=== PATIENT | female | born 1975 | race Asian ===

== ENCOUNTER → 2016-10-28 | Outpatient (CLI) | payer OTHER ==
[2016-10-28 13:56] LABS: MEAN CORPUSCULAR HEMOGLOBIN 28.8 pg (27.0-33.0); MEAN CORPUSCULAR HGB CONC 32.3 g/dl (32.0-36.5); MEAN CORPUSCULAR VOLUME 89.2 fl (80.0-96.0); RED CELL DISTRIBUTION WIDTH 14.6 % (11.5-14.5); WHITE BLOOD COUNT 8.7 K/mm3 (4.0-10.0)
== END ==
LOC: M LAB 11:58
PROVIDERS: ATTEND Advanced Practice Midwife
DX: O09.522 Supervision of elderly multigravida, second trimester (principal)

== ENCOUNTER → 2016-12-11 | Outpatient (REF) | payer OTHER ==
[2016-12-11 13:02] LABS: BASO % 0.5 % (0.0-1.0); EOS # 0.4 K/mm3 (0.0-0.50); EOS % 4.1 % (0.0-3.0); LARGE UNSTAINED CELL # 0.2 K/mm3 (0.0-0.4); LARGE UNSTAINED CELL % 1.9 % (0.0-4.0); LYMPH # 1.5 K/mm3 (1.5-4.5); LYMPH % 17.1 % (24.0-44.0); MEAN CORPUSCULAR HGB CONC 32.4 g/dl (32.0-36.5); MEAN CORPUSCULAR VOLUME 89.5 fl (80.0-96.0); MONO # 0.4 K/mm3 (0.0-0.8); MONO % 4.1 % (0.0-5.0); NEUTROPHILS # 6.2 K/mm3 (1.8-7.7); NEUTROPHILS % 72.3 % (36.0-66.0); PLATELET COUNT, AUTOMATED 236 k/mm3 (150-450); RED CELL DISTRIBUTION WIDTH 13.8 % (11.5-14.5); WHITE BLOOD COUNT 8.6 K/mm3 (4.0-10.0)
== END ==
LOC: M SFHCADAM 11:20
PROVIDERS: ATTEND Family Medicine
DX: D50.9 Iron deficiency anemia, unspecified (principal)

== ENCOUNTER 2016-12-13 15:14 | Emergency (ER) | payer OTHER ==
[2016-12-13] MEDS ORDERED: ALBUTEROL SULFATE 2.5 MG/0.5 ML INH NEB SOLN As Ordered ONE (16:29)
[2016-12-13] MEDS ORDERED: AMOXICILLIN 500 MG CAP As Ordered ONE (16:35)
--- NOTE | 2016-12-13 18:16 | EDDOCDS ---
Physician Documentation [facility] Name: Jeni Bell Age: 41 yrs Sex: Female : 1975 Arrival Date: 12/13/2016 Time: 15:14 Bed PD Private MD: NO PRIMARY PHYSICIAN, . Disposition: 12/13/16 17:35 Discharged to Home/Self Care. Impression: Cough variant asthma, Acute sinusitis. - Condition is Stable. - Discharge Instructions: Asthma, Adult, Medicines During , Sinusitis, [id number]. - Prescriptions for Amoxicillin 875 mg Oral Tablet - take 1 tablet by ORAL route every 12 hours for 10 days; 20 tablet. Albuterol Sulfate 90 mcg/actuation Inhalation HFA Aerosol Inhaler - inhale 2 puff by INHALATION route every 4 hours As needed; 1 Inhaler. - Medication Reconciliation, Local Pharmacy Hours, Referral List Call for Appointment form. - [facility]; When: 1 - 2 days; Reason: Further diagnostic work-up, Recheck today's complaints, Continuance of care. Follow up: Emergency Department; Reason: Worsening of conditions. - Problem is new. - Symptoms have improved. Historical: - Allergies: no known allergies; - Home Meds: 1. ventolin inhaler as needed 2. Plaquenil Unknown Oral once daily 3. montelukast 10 mg oral tab 1 tab once daily - PMHx: Asthma; Arthritis; Seasonal Allergies; - PSHx: none; - Social history: Smoking status: Patient states was never smoker of tobacco. Preferred Language: Sao Tomean. - Family history: Not pertinent. - : The pt / caregiver states he / she is not on anticoagulants. Home medication list is obtained from the patient. - Exposure Risk Screening:: None identified. 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 2 in. (157.48 cm) (R); Pain 5/10; 17:45 BP 128 / 75; Pulse 110; Resp 16; Temp 98.8(O); Pulse Ox 96% on R/A; Pain 0/10; sew 15:17 Body Mass Index 25.61 (63.50 kg, 157.48 cm) gr2 MDM: 16:08 Albuterol 2.5 mg Nebulizer once x3 ordered. ef1 16:08 Call Respiratory ordered. ef1 16:08 Amoxicillin 500 mg PO once ordered. ef1 16:08 Heart Tones ordered. ef1 16:08 Financial registration complete. gjb 16:14 Call Respiratory complete. sew 16:29 [facility] Payment Agreement was scanned into [employer] and attached to record. gjb 17:30 MDI teaching with Spacer ordered. ef1 Administered Medications: 03:00 Drug: Albuterol 2.5 mg [albuterol sulfate 2.5 mg/0.5 mL solution for nebulization (0.5 lb mL)] Route: Nebulizer; 16:29 Drug: Albuterol 2.5 mg [albuterol sulfate 2.5 mg/0.5 mL solution for nebulization (0.5 lb mL)] Route: Nebulizer; 16:43 Drug: Albuterol 2.5 mg [albuterol sulfate 2.5 mg/0.5 mL solution for nebulization (0.5 lb mL)] Route: Nebulizer; 16:50 Drug: Amoxicillin 500 mg [amoxicillin 500 mg capsule (1 caps)] Route: PO; srm Signatures: Lindsey Ruvalcaba RN RN srm Feola, Geno, PA-C PA-C ef1 Ashley Mcrae RN RN [facility] Yeni May Gabriela gjb Bickel, Lindsay lb The chart was reviewed and I authenticate all verbal orders and agree with the evaluation and treatment provided.Attachments: 16:29 [facility] Payment Agreement gjb MTDD
--- NOTE | 2016-12-13 18:16 | EDDOCDS ---
Nurse's Notes [facility] Name: Jeni Bell Age: 41 yrs Sex: Female : 1975 Arrival Date: 12/13/2016 Time: 15:14 Bed PD Private MD: NO PRIMARY PHYSICIAN, . Diagnosis: Cough variant asthma;Acute sinusitis Presentation: 12/13 15:19 Presenting complaint: per son- received vaccine for whooping Wednesday that night cough , srm tight ness in chest with cough difficulty breathing at night. rescue inhaler doesn't help her any more than 30 mins. feels tighter in chest today than past 36 hours. Adult Sepsis Screening: The patient does not have new or worsening altered mentation. Patient's respiratory rate is less than 22. Systolic blood pressure is greater than 100. Patient has a qSOFA score of 0- Negative Sepsis Screen. Suicide/Homicide risk assessment- the patient denies having any suicidal and/or homicidal ideations and does not present with any other emotional, behavioral or mental health complaints. Status: Patient is not a financial services technician or dependent. Transition of care: patient was not received from another setting of care. 15:19 Acuity: NO Level 3 srm 15:19 Method Of Arrival: Walkin/Carried/Asstd srm 15:26 Presenting complaint: Patient states: 32 weeks - denies cramping or contraction srm b=ut states it feels tight. Triage Assessment: 15:23 General: Appears in no apparent distress, Behavior is appropriate for age, cooperative. srm Pain: Pain currently is 8 out of 10 on a pain scale. Pt Declines HIV testing. 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 ventolin inhaler as needed 2. Plaquenil Unknown Oral once daily 3. montelukast 10 mg oral tab 1 tab once daily - PMHx: Asthma; Arthritis; Seasonal Allergies; - PSHx: none; - Social history: Smoking status: Patient states was never smoker of tobacco. Preferred Language: Central African. - Family history: Not pertinent. - : The pt / caregiver states he / she is not on anticoagulants. Home medication list is obtained from the patient. - Exposure Risk Screening:: None identified. Screenin:09 Screening information is obtained from the patient. Fall risk: No risks identified. [facility] Assistance ADL's: requires no assistance with activities of daily living. Abuse/DV Screen: The patient / caregiver reports he/she is: not in a situation that causes fear, pain or injury. Nutritional screening: No deficits noted. Advance Directives: There is no active DNR order. home support is adequate. Assessment: 18:09 General: Appears in no apparent distress, comfortable, Behavior is appropriate for age, cjh cooperative. Pain: Denies pain. Neurological: Level of Consciousness is awake, alert, Oriented to person, place, time. Respiratory: Airway is patent Respiratory effort is even, unlabored, Respiratory pattern is regular, symmetrical. Derm: Skin is pink, warm & dry. Vital Signs: 15:17 BP 121 / 72; Pulse 94; Resp 18 S; Temp 99.0(O); Pulse Ox 95% on R/A; Weight 63.5 kg gr2 (R); Height 5 ft. 2 in. (157.48 cm) (R); Pain 5/10; 17:45 BP 128 / 75; Pulse 110; Resp 16; Temp 98.8(O); Pulse Ox 96% on R/A; Pain 0/10; sew 15:17 Body Mass Index 25.61 (63.50 kg, 157.48 cm) gr2 Vitals: 15:17 Log In Time: December 13, 2016 at 15:17. gr2 16:19 Heart Tones: 128BPM. [facility] ED Course: 15:16 Patient visited by Abril Morrell. gr2 15:16 Patient moved to Waiting gr2 15:17 NO PRIMARY PHYSICIAN, . is Private Physician. gr2 15:18 Patient visited by Abril Morrell. gr2 15:18 Patient moved to Pre RCE gr2 15:21 Triage Initiated srm 15:29 Patient moved to Triage 1 [facility] 15:57 Geno Hawk PA-C is PHCP. ef1 15:57 Kim Rodriguez MD is Attending Physician. ef1 15:57 Patient visited by Geno Hawk PA-C. ef1 16:10 Patient moved to PD [facility] 16:18 Patient name changed from [place]\S\\S\Usubalieva\S\ to [place]\S\ \S\Usubalieva. EDMS 16:19 Patient visited by Gabe Pearson RN. bcj 16:29 [facility] Payment Agreement was scanned into [employer] and attached to record. gjb 16:52 Patient visited by Geno Hawk PA-C. ef1 17:27 Patient visited by Geno Hawk PA-C. ef1 17:35 Janae Hays MD is Referral Physician. ef1 17:45 Patient visited by Yeni May. sew 18:09 The patient / caregiver is instructed regarding the plan of care and ED course. [facility] 18:09 No IV's were initiated during this patient's visit. No procedures done that require [facility] assistance. Administered Medications: 03:00 Drug: Albuterol 2.5 mg [albuterol sulfate 2.5 mg/0.5 mL solution for nebulization (0.5 lb mL)] Route: Nebulizer; 16:29 Drug: Albuterol 2.5 mg [albuterol sulfate 2.5 mg/0.5 mL solution for nebulization (0.5 lb mL)] Route: Nebulizer; 16:43 Drug: Albuterol 2.5 mg [albuterol sulfate 2.5 mg/0.5 mL solution for nebulization (0.5 lb mL)] Route: Nebulizer; 16:50 Drug: Amoxicillin 500 mg [amoxicillin 500 mg capsule (1 caps)] Route: PO; srm RT: 16:43 Initial Med Neb Given as ordered Family was instructed on procedure. Respiratory: lb Breath sounds with wheezes bilaterally. at expiration at inspiration. Order Results: There are currently no results for this order. Outcome: 17:35 Discharge ordered by Provider. ef1 18:09 Discharge Assessment: Patient awake, alert and oriented x 3. No cognitive and/or [facility] functional deficits noted. Patient verbalized understanding of disposition instructions. patient administered narcotics - no. The following High Risk Discharge criteria are identified: None. Discharged to home ambulatory. Condition: good Condition: stable Condition: improved. Discharge instructions given to patient, Instructed on discharge instructions, follow up and referral plans. medication usage, Demonstrated understanding of instructions, medications, Pt was receptive of discharge instructions/ teaching. Prescriptions given X 2. No special radiology studies were completed. Property :Personal belongings accompany Pt. 18:15 Patient left the ED. [facility] Signatures: Dispatcher [employer] EDGabe Alvarez RN RN bcj Michelson, Staci, RN RN Alix Hyman Erica, PALouannC PADonna ef1 Ashley Mcrae RN RN cj Yeni May Gainslee gr2 Jana Musa Corrections: (The following items were deleted from the chart) 15:27 15:26 Presenting complaint: Patient states: 32 weeks gabriel rios MTDD
--- NOTE | 2016-12-15 19:16 | EDDOCDS ---
Physician Documentation [facility] Name: Jeni Bell Age: 41 yrs Sex: Female : 1975 Arrival Date: 12/13/2016 Time: 15:14 Bed PD Private MD: NO PRIMARY PHYSICIAN, . Disposition: 12/13/16 17:35 Discharged to Home/Self Care. Impression: Cough variant asthma, Acute sinusitis. - Condition is Stable. - Discharge Instructions: Asthma, Adult, Medicines During , Sinusitis, [id number]. - Prescriptions for Amoxicillin 875 mg Oral Tablet - take 1 tablet by ORAL route every 12 hours for 10 days; 20 tablet. Albuterol Sulfate 90 mcg/actuation Inhalation HFA Aerosol Inhaler - inhale 2 puff by INHALATION route every 4 hours As needed; 1 Inhaler. - Medication Reconciliation, Local Pharmacy Hours, Referral List Call for Appointment form. - [facility]; When: 1 - 2 days; Reason: Further diagnostic work-up, Recheck today's complaints, Continuance of care. Follow up: Emergency Department; Reason: Worsening of conditions. - Problem is new. - Symptoms have improved. Historical: - Allergies: no known allergies; - Home Meds: 1. ventolin inhaler as needed 2. Plaquenil Unknown Oral once daily 3. montelukast 10 mg oral tab 1 tab once daily - PMHx: Asthma; Arthritis; Seasonal Allergies; - PSHx: none; - Social history: Smoking status: Patient states was never smoker of tobacco. Preferred Language: Fijian. - Family history: Not pertinent. - : The pt / caregiver states he / she is not on anticoagulants. Home medication list is obtained from the patient. - Exposure Risk Screening:: None identified. 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 2 in. (157.48 cm) (R); Pain 5/10; 17:45 BP 128 / 75; Pulse 110; Resp 16; Temp 98.8(O); Pulse Ox 96% on R/A; Pain 0/10; sew 15:17 Body Mass Index 25.61 (63.50 kg, 157.48 cm) gr2 MDM: 16:08 Albuterol 2.5 mg Nebulizer once x3 ordered. ef1 16:08 Call Respiratory ordered. ef1 16:08 Amoxicillin 500 mg PO once ordered. ef1 16:08 Heart Tones ordered. ef1 16:08 Financial registration complete. gjb 16:14 Call Respiratory complete. sew 16:29 [facility] Payment Agreement was scanned into [employer] and attached to record. gjb 17:30 MDI teaching with Spacer ordered. ef1 22:17 T-Sheet-- Draft Copy was scanned into [employer] and attached to record. klr Administered Medications: 03:00 Drug: Albuterol 2.5 mg [albuterol sulfate 2.5 mg/0.5 mL solution for nebulization (0.5 lb mL)] Route: Nebulizer; 16:29 Drug: Albuterol 2.5 mg [albuterol sulfate 2.5 mg/0.5 mL solution for nebulization (0.5 lb mL)] Route: Nebulizer; 16:43 Drug: Albuterol 2.5 mg [albuterol sulfate 2.5 mg/0.5 mL solution for nebulization (0.5 lb mL)] Route: Nebulizer; 16:50 Drug: Amoxicillin 500 mg [amoxicillin 500 mg capsule (1 caps)] Route: PO; srm Signatures: Lindsey Ruvalcaba RN RN srm Carine, Geno, PALouannC PA-C ef1 Ashley Mcrae RN RN evelyn May, Jana Grant Kathie klr Bickel, Lindsay lb The chart was reviewed and I authenticate all verbal orders and agree with the evaluation and treatment provided.Attachments: 16:29 [facility] Payment Agreement [facility] 22:17 T-Sheet-- Draft Copy klr Chart Complete MTDD
--- NOTE | 2016-12-15 19:16 | EDDOCDS ---
Nurse's Notes [facility] Name: Jeni Bell Age: 41 yrs Sex: Female : 1975 Arrival Date: 12/13/2016 Time: 15:14 Bed PD Private MD: NO PRIMARY PHYSICIAN, . Diagnosis: Cough variant asthma;Acute sinusitis Presentation: 12/13 15:19 Presenting complaint: per son- received vaccine for whooping Wednesday that night cough , srm tight ness in chest with cough difficulty breathing at night. rescue inhaler doesn't help her any more than 30 mins. feels tighter in chest today than past 36 hours. Adult Sepsis Screening: The patient does not have new or worsening altered mentation. Patient's respiratory rate is less than 22. Systolic blood pressure is greater than 100. Patient has a qSOFA score of 0- Negative Sepsis Screen. Suicide/Homicide risk assessment- the patient denies having any suicidal and/or homicidal ideations and does not present with any other emotional, behavioral or mental health complaints. Status: Patient is not a early childhood services coordinator or dependent. Transition of care: patient was not received from another setting of care. 15:19 Acuity: NO Level 3 srm 15:19 Method Of Arrival: Walkin/Carried/Asstd srm 15:26 Presenting complaint: Patient states: 32 weeks - denies cramping or contraction srm b=ut states it feels tight. Triage Assessment: 15:23 General: Appears in no apparent distress, Behavior is appropriate for age, cooperative. srm Pain: Pain currently is 8 out of 10 on a pain scale. Pt Declines HIV testing. 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 ventolin inhaler as needed 2. Plaquenil Unknown Oral once daily 3. montelukast 10 mg oral tab 1 tab once daily - PMHx: Asthma; Arthritis; Seasonal Allergies; - PSHx: none; - Social history: Smoking status: Patient states was never smoker of tobacco. Preferred Language: Guyanese. - Family history: Not pertinent. - : The pt / caregiver states he / she is not on anticoagulants. Home medication list is obtained from the patient. - Exposure Risk Screening:: None identified. Screenin:09 Screening information is obtained from the patient. Fall risk: No risks identified. [facility] Assistance ADL's: requires no assistance with activities of daily living. Abuse/DV Screen: The patient / caregiver reports he/she is: not in a situation that causes fear, pain or injury. Nutritional screening: No deficits noted. Advance Directives: There is no active DNR order. home support is adequate. Assessment: 18:09 General: Appears in no apparent distress, comfortable, Behavior is appropriate for age, cjh cooperative. Pain: Denies pain. Neurological: Level of Consciousness is awake, alert, Oriented to person, place, time. Respiratory: Airway is patent Respiratory effort is even, unlabored, Respiratory pattern is regular, symmetrical. Derm: Skin is pink, warm & dry. Vital Signs: 15:17 BP 121 / 72; Pulse 94; Resp 18 S; Temp 99.0(O); Pulse Ox 95% on R/A; Weight 63.5 kg gr2 (R); Height 5 ft. 2 in. (157.48 cm) (R); Pain 5/10; 17:45 BP 128 / 75; Pulse 110; Resp 16; Temp 98.8(O); Pulse Ox 96% on R/A; Pain 0/10; sew 15:17 Body Mass Index 25.61 (63.50 kg, 157.48 cm) gr2 Vitals: 15:17 Log In Time: December 13, 2016 at 15:17. gr2 16:19 Heart Tones: 128BPM. [facility] ED Course: 15:16 Patient visited by Abril Morrell. gr2 15:16 Patient moved to Waiting gr2 15:17 NO PRIMARY PHYSICIAN, . is Private Physician. gr2 15:18 Patient visited by Abrli Morrell. gr2 15:18 Patient moved to Pre RCE gr2 15:21 Triage Initiated srm 15:29 Patient moved to Triage 1 [facility] 15:57 Geno Hawk PA-C is PHCP. ef1 15:57 Kim Rodriguez MD is Attending Physician. ef1 15:57 Patient visited by Geno Hawk PA-C. ef1 16:10 Patient moved to PD [facility] 16:18 Patient name changed from [place]\S\\S\Usubalieva\S\ to [place]\S\ \S\Usubalieva. EDMS 16:19 Patient visited by Gabe Pearson RN. bcj 16:29 [facility] Payment Agreement was scanned into [employer] and attached to record. gjb 16:52 Patient visited by Geno Hawk PA-C. ef1 17:27 Patient visited by Geno Hawk PA-C. ef1 17:35 Janae Hays MD is Referral Physician. ef1 17:45 Patient visited by Yeni May. sew 18:09 The patient / caregiver is instructed regarding the plan of care and ED course. [facility] 18:09 No IV's were initiated during this patient's visit. No procedures done that require [facility] assistance. 22:17 T-Sheet-- Draft Copy was scanned into [employer] and attached to record. klr Administered Medications: 03:00 Drug: Albuterol 2.5 mg [albuterol sulfate 2.5 mg/0.5 mL solution for nebulization (0.5 lb mL)] Route: Nebulizer; 16:29 Drug: Albuterol 2.5 mg [albuterol sulfate 2.5 mg/0.5 mL solution for nebulization (0.5 lb mL)] Route: Nebulizer; 16:43 Drug: Albuterol 2.5 mg [albuterol sulfate 2.5 mg/0.5 mL solution for nebulization (0.5 lb mL)] Route: Nebulizer; 16:50 Drug: Amoxicillin 500 mg [amoxicillin 500 mg capsule (1 caps)] Route: PO; [facility] RT: 16:43 Initial Med Neb Given as ordered Family was instructed on procedure. Respiratory: lb Breath sounds with wheezes bilaterally. at expiration at inspiration. Order Results: There are currently no results for this order. Outcome: 17:35 Discharge ordered by Provider. ef1 18:09 Discharge Assessment: Patient awake, alert and oriented x 3. No cognitive and/or [facility] functional deficits noted. Patient verbalized understanding of disposition instructions. patient administered narcotics - no. The following High Risk Discharge criteria are identified: None. Discharged to home ambulatory. Condition: good Condition: stable Condition: improved. Discharge instructions given to patient, Instructed on discharge instructions, follow up and referral plans. medication usage, Demonstrated understanding of instructions, medications, Pt was receptive of discharge instructions/ teaching. Prescriptions given X 2. No special radiology studies were completed. Property :Personal belongings accompany Pt. 18:15 Patient left the ED. [facility] Signatures: Dispatcher [employer] EDGabe Alvarez, RN RN Lindsey Hudson RN RN Alix Hyman Erica, PALouannC PADonna ef1 Ashley Mcrae RN RN [facility] Yeni May Gainslee gr2 Jana Musa Kathie klr Corrections: (The following items were deleted from the chart) 15:27 15:26 Presenting complaint: Patient states: 32 weeks gabriel rios Chart Complete MTDD
--- NOTE | 2016-12-15 19:16 | EDDOCDS ---
Physician Documentation [facility] Name: Jeni Bell Age: 41 yrs Sex: Female : 1975 Arrival Date: 12/13/2016 Time: 15:14 Bed PD Private MD: NO PRIMARY PHYSICIAN, . Disposition: 12/13/16 17:35 Discharged to Home/Self Care. Impression: Cough variant asthma, Acute sinusitis. - Condition is Stable. - Discharge Instructions: Asthma, Adult, Medicines During , Sinusitis, [id number]. - Prescriptions for Amoxicillin 875 mg Oral Tablet - take 1 tablet by ORAL route every 12 hours for 10 days; 20 tablet. Albuterol Sulfate 90 mcg/actuation Inhalation HFA Aerosol Inhaler - inhale 2 puff by INHALATION route every 4 hours As needed; 1 Inhaler. - Medication Reconciliation, Local Pharmacy Hours, Referral List Call for Appointment form. - [facility]; When: 1 - 2 days; Reason: Further diagnostic work-up, Recheck today's complaints, Continuance of care. Follow up: Emergency Department; Reason: Worsening of conditions. - Problem is new. - Symptoms have improved. Historical: - Allergies: no known allergies; - Home Meds: 1. ventolin inhaler as needed 2. Plaquenil Unknown Oral once daily 3. montelukast 10 mg oral tab 1 tab once daily - PMHx: Asthma; Arthritis; Seasonal Allergies; - PSHx: none; - Social history: Smoking status: Patient states was never smoker of tobacco. Preferred Language: Mauritanian. - Family history: Not pertinent. - : The pt / caregiver states he / she is not on anticoagulants. Home medication list is obtained from the patient. - Exposure Risk Screening:: None identified. 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 2 in. (157.48 cm) (R); Pain 5/10; 17:45 BP 128 / 75; Pulse 110; Resp 16; Temp 98.8(O); Pulse Ox 96% on R/A; Pain 0/10; sew 15:17 Body Mass Index 25.61 (63.50 kg, 157.48 cm) gr2 MDM: 16:08 Albuterol 2.5 mg Nebulizer once x3 ordered. ef1 16:08 Call Respiratory ordered. ef1 16:08 Amoxicillin 500 mg PO once ordered. ef1 16:08 Heart Tones ordered. ef1 16:08 Financial registration complete. gjb 16:14 Call Respiratory complete. sew 16:29 [facility] Payment Agreement was scanned into [employer] and attached to record. gjb 17:30 MDI teaching with Spacer ordered. ef1 22:17 T-Sheet-- Draft Copy was scanned into [employer] and attached to record. klr Administered Medications: 03:00 Drug: Albuterol 2.5 mg [albuterol sulfate 2.5 mg/0.5 mL solution for nebulization (0.5 lb mL)] Route: Nebulizer; 16:29 Drug: Albuterol 2.5 mg [albuterol sulfate 2.5 mg/0.5 mL solution for nebulization (0.5 lb mL)] Route: Nebulizer; 16:43 Drug: Albuterol 2.5 mg [albuterol sulfate 2.5 mg/0.5 mL solution for nebulization (0.5 lb mL)] Route: Nebulizer; 16:50 Drug: Amoxicillin 500 mg [amoxicillin 500 mg capsule (1 caps)] Route: PO; srm Signatures: Lindsey Ruvalcaba RN RN srm Carine, Geno, PALouannC PA-C ef1 Ashley Mcrae RN RN evelyn May, Jana Grant Kathie klr Bickel, Lindsay lb The chart was reviewed and I authenticate all verbal orders and agree with the evaluation and treatment provided.Attachments: 16:29 [facility] Payment Agreement [facility] 22:17 T-Sheet-- Draft Copy klr Chart Complete MTDD
[2016-12-18] MEDS ORDERED: FERR325T88 PO (14:23)
[2016-12-18] MEDS ORDERED: PRENTAB7 PO (14:23)
[2016-12-18] MEDS ORDERED: PHEN2SUP PR (14:23)
[2016-12-18] MEDS ORDERED: ZOFR4TAB3 PO (14:23)
== END 2016-12-13 18:15 | disposition home or self-care (01) ==
LOC: M ED 15:14
DX: J01.90 Acute sinusitis, unspecified (principal); J45.991 Cough variant asthma; M19.90 Unspecified osteoarthritis, unspecified site; Z79.899 Other long term (current) drug therapy

== ENCOUNTER 2016-12-21 09:12 | Outpatient (CLI) | payer OTHER ==
[~2016-12-21 09:12] MED LIST: FERR325T88 PO; PHEN2SUP PR; PRENTAB7 PO; ZOFR4TAB3 PO
[2016-12-21] MEDS ORDERED: IRON SUCROSE 25 MG in NS 50 ML IV ONE (10:00)
[2016-12-21] MEDS ORDERED: ONDANSETRON 4MG/2ML VIAL (J2405) IV PRN (10:00)
[2016-12-21] MEDS ORDERED: diphenhydrAMINE 25 MG CAP PO ONE (10:00)
[2016-12-21] MEDS ORDERED: IRON SUCROSE 475 MG in NS 250 ML IV ONE (10:00)
[2016-12-21] MEDS ORDERED: ACETAMINOPHEN TAB 650MG DOSE (2X325MG) PO ONE (10:00)
== END 2016-12-21 14:00 | disposition home or self-care (01) ==
LOC: M INFU 09:12
PROVIDERS: ATTEND Specialist
DX: D64.9 Anemia, unspecified (principal); J45.909 Unspecified asthma, uncomplicated; M19.90 Unspecified osteoarthritis, unspecified site; Z79.899 Other long term (current) drug therapy
CPT/HCPCS: 96365; 96366; J1756

== ENCOUNTER → 2017-01-04 | Outpatient (REF) | payer OTHER | LOC: M LAB REF 16:54 | PROVIDERS: ATTEND Specialist | DX: Z34.83 Encounter for supervision of other normal pregnancy, third trimester (principal) ==

== ENCOUNTER → 2017-01-07 | Outpatient (CLI) | payer OTHER ==
[2017-01-07 16:40] LABS: MEAN CORPUSCULAR HEMOGLOBIN 30.1 pg (27.0-33.0); MEAN CORPUSCULAR HGB CONC 32.9 g/dl (32.0-36.5); MEAN CORPUSCULAR VOLUME 91.6 fl (80.0-96.0); RED CELL DISTRIBUTION WIDTH 13.9 % (11.5-14.5); WHITE BLOOD COUNT 8.8 K/mm3 (4.0-10.0)
== END ==
LOC: M SMT 12:44
PROVIDERS: ATTEND Specialist
DX: O99.013 Anemia complicating pregnancy, third trimester (principal)

== ENCOUNTER 2017-01-30 01:54 | Inpatient (IN) | payer OTHER ==
[2017-01-30] VITALS (49 sets, daily range): BP systolic 80–132; BP diastolic 42–72
[~2017-01-30] VITALS: Ht 157.5 cm; Wt 65.0 kg
[2017-01-30] MEDS ORDERED: OXYTOCIN DRIP 30 UNITS in APPROPRIATE DILUENT 1 EA IV SCH (03:15)
--- NOTE | 2017-01-30 03:53 | HPE ---
DATE OF ADMISSION: 01/30/2017 REASON FOR ADMISSION: Spontaneous rupture of membranes. HISTORY OF PRESENT ILLNESS: This patient is a 41-year-old 5, para 3, who presents at 39 weeks 5 days estimated gestational age by her last menstrual period confirmed by first trimester ultrasound with complaints of leakage of fluid. She reports approximately 11:30 p.m. that she had a gush of clear fluid. She reports some irregular contractions. Denies any vaginal bleeding. Her course has been remarkable for advanced maternal age, otherwise unremarkable. She initiated care in her first trimester and has been appropriate throughout. PAST MEDICAL HISTORY: 1. History of asthma. 2. Rheumatoid arthritis. PAST SURGICAL HISTORY: None. PAST OBSTETRICAL HISTORY: She is a 5, para 3. She has had three term vaginal deliveries. She has proven to 7 pounds 9 ounces. SOCIAL HISTORY: She denies any alcohol, tobacco, or drug use during her . Her primary language is Czech. She speaks minimal Montenegrin. MEDICATIONS: Include Plaquenil, vitamins, Advair, and iron. ALLERGIES: She has no known drug allergies. PHYSICAL EXAMINATION: VITAL SIGNS: Stable. She is afebrile. She has a category 1 heart rate tracing with some irregular contractions on tachometer. GENERAL APPEARANCE: Well-appearing in no acute distress. LUNGS: Clear to auscultation bilaterally. CARDIOVASCULAR: Heart is regular rate and rhythm. ABDOMEN: Soft, gravid, and nontender. Estimated weight (EFW) 3500 grams. CERVICAL EXAM: She was 1 cm dilated, 50% effaced, grossly ruptured. LABORATORIES: Her blood type is B positive. Antibody screen is negative. Rubella is immune. RPR is nonreactive. Hepatitis surface antigen is negative. HIV is negative. Hepatitis C is nonreactive. Chlamydia and gonorrhea screens are negative. She had a normal 1-hour Glucola. She is group B Streptococcus (GBS) negative. ASSESSMENT: 1. This patient is a 41-year-old 5, para 3, who presents at 39 weeks 5 days estimated gestational age with spontaneous rupture of membranes. 2. Reassuring status. PLAN: 1. Admit to labor and delivery. CBC, RPR, type and screen. 2. Have counseled the patient in regards to augmentation of labor with Pitocin. All questions have been answered. She desires to proceed with admission.
[2017-01-30] MEDS: LR 1,000 ML IV SCH ×3 (04:30→14:32)
[2017-01-30] MEDS ORDERED: FENTANYL 2MCG/ML ROPIVACAINE 0.2% IN 0.9% NACL 200ML IVBAG As Ordered ONE (06:06)
[2017-01-30] MEDS ORDERED: ONDANSETRON 4MG/2ML VIAL (J2405) IV PRN ×3 (06:49→21:00)
[2017-01-30] MEDS ORDERED: NALOXONE INJ 0.4 MG/1 ML VIAL (J2310) IV PRN ×3 (06:49→19:41)
[2017-01-30] MEDS ORDERED: EPIDURAL COMMENT XX SCH (06:49)
[2017-01-30] MEDS ORDERED: EPIDURAL/PCA KEYS XX PRN (06:49)
[2017-01-30] MEDS ORDERED: LACTATED RINGER'S 1000 ML IV PRN (06:49)
[2017-01-30] MEDS ORDERED: FENTANYL/ROPIVACAINE/NACL BAG 200 ML EPIDURAL SCH (06:49)
[2017-01-30] MEDS ORDERED: diphenhydrAMINE INJ 50MG/ML VIAL (J1200) IV PRN (06:49)
[2017-01-30] MEDS ORDERED: REFRIGERATOR IV KEYS XX PRN (06:49)
[2017-01-30] MEDS: ePHEDrine SULFATE 25 MG/5 ML(5MG/ML) SYRINGE IV PRN ×3 (08:58→09:15)
[2017-01-30] MEDS ORDERED: BICITRA 30ML SOLN UDC As Ordered ONE (19:09)
[2017-01-30] MEDS ORDERED: ceFAZolin 2 GM/D5W 50 ML IV BAG (J0690) As Ordered ONE (19:09)
[2017-01-30] MEDS ORDERED: BICITRA 30ML SOLN UDC PO ONE (19:15)
[2017-01-30] MEDS ORDERED: MORPHINE PRES-FREE INJ 10 MG/10 ML VIAL (J2274) As Ordered ONE (19:25)
[2017-01-30] MEDS ORDERED: METOCLOPRAMIDE INJ 10MG/2ML VIAL (J2765) IV PRN (19:41)
[2017-01-30] MEDS ORDERED: NALBUPHINE HCL 10 MG/ML AMP (J2300) IV PRN (19:41)
[2017-01-30] MEDS ORDERED: ePHEDrine SULFATE 25 MG/5 ML(5MG/ML) SYRINGE As Ordered ONE (19:43)
[2017-01-30] MEDS ORDERED: ONDANSETRON 4MG/2ML VIAL (J2405) As Ordered ONE (19:52)
[2017-01-30] MEDS ORDERED: KETOROLAC 60 MG/2 ML VIAL (J1885) As Ordered ONE (20:19)
[2017-01-30] MEDS ORDERED: MEPERIDINE 50 MG/ML 1ML VIAL (J2175) As Ordered ONE (20:21)
[2017-01-30] MEDS ORDERED: LR 1,000 ML IV SCH (20:43)
[2017-01-30] MEDS ORDERED: RHOGAM 300 MCG (1500 IU) INJ (J2790) IM SCH (20:45)
[2017-01-30] MEDS ORDERED: MEASLES,MUMPS,RUBELLA VACCINE INJ (MMR-II) (90707) SC SCH (20:45)
[2017-01-30] MEDS ORDERED: PERCOCET 5MG/325MG TAB PO PRN (20:45)
[2017-01-30] MEDS ORDERED: DOCUSATE SODIUM 100 MG CAP PO PRN (20:45)
[2017-01-30] MEDS ORDERED: OXYTOCIN DRIP 30 UNITS in APPROPRIATE DILUENT 1 EA IV ONE (20:45)
[2017-01-30] MEDS ORDERED: IBUP800T23 PO (20:48)
[2017-01-30] MEDS ORDERED: PERCOCET PO (20:49)
[2017-01-30] MEDS ORDERED: fentaNYL 100 MCG/2 ML INJECTION (J3010) IV PRN (21:00)
[2017-01-30] MEDS ORDERED: ALBUTEROL 90 MCG/ACT 8GM HFA INHALER INH PRN (22:15)
[2017-01-31 01:36] VITALS: BP 114/56
[2017-01-31] MEDS: KETOROLAC 30 MG/ML VIAL (J1885) IV SCH ×4 (02:37→21:27)
[2017-01-31 05:34] VITALS: BP 119/56
--- NOTE | 2017-01-31 06:50 | RO ---
DATE OF PROCEDURE: 01/30/2017 PREOPERATIVE DIAGNOSES: 1. Arrest of dilation. 2. Satisfied parity with undesired fertility. POSTOPERATIVE DIAGNOSES: 1. Arrest of dilation. 2. Satisfied parity with undesired fertility. PROCEDURE PERFORMED: Primary lower transverse section. SURGEON: Janae Hays MD ASSISTANTS: Jonh Sawyer DO ANESTHESIA: Spinal. ESTIMATED BLOOD LOSS: 400 mL. INTRAVENOUS FLUIDS: 1200 mL of lactated Ringer solution. URINE OUTPUT: 300 mL. OPERATIVE FINDINGS: Liveborn male , score 9 and 10, weight 2088 grams or 6 pounds 6 ounces. PREOPERATIVE ANTIBIOTICS: 2 grams of Ancef. INDICATION FOR OPERATION: This patient is a 41-year-old, 5, para 3, who presented at 39 plus weeks with premature rupture of membranes that occurred at 11 p.m. last night. When she presented, she was 1 cm. Her labor was augmented with pitocin. She progressed to 4-5 cm and remained with that exam despite adequate contractions over 6 hours. She was then consented for a primary section secondary to arrest of dilation. DESCRIPTION OF OPERATION: After informed consent was obtained and written consent was reviewed, the patient was brought to the operating room where spinal anesthesia was placed. She was then placed in a supine position with a left lateral tilt. She was then prepped and draped in a normal sterile fashion. A time-out in the operating room was then performed, identifying the patient, procedure to be performed, as well as drug allergies. Anesthesia was tested, deemed to be adequate. A Pfannenstiel skin incision was then made and carried down to the underlying rectus fascia. The fascia was scored and this incision was extended bilaterally. The fascia was then dissected off the underlying rectus muscles both superiorly and inferiorly. The rectus muscles were in the midline. The peritoneum was then entered. The vesicouterine peritoneum was then identified. It excised to create a bladder flap. A bladder blade was then placed to retract back the bladder. A curvilinear incision was then made in the lower uterine segment. head was then brought to level of the incision atraumatically, followed by delivery of shoulders and corpus. The cord was clamped times two and was cut. Infant was taken over to the warmer with a good cry. Of note, there was a true knot in the umbilical cord. Placenta was then delivered grossly intact. Uterus was exteriorized and cleared of all clots and debris. The uterine incision was closed in two layers using #0 Vicryl, first layer in a running locking fashion, followed by a second layer for imbrication in a running nonlocking fashion. Next, bilateral Stonybrook tubal ligation was then performed. The right fallopian tube was placed on traction. A window was created in the mesosalpinx. This area of the fallopian tube was doubly ligated using #0 chromic and was excised. Good hemostasis noted. In a similar, the left fallopian tube was placed on traction. A window was created in the mesosalpinx. This area of the fallopian tube was doubly ligated with #0 chromic and was excised with good hemostasis noted. The uterus was returned in the patient's abdomen. The surgical sites were inspected and noted to be hemostatic. Next, the anterior peritoneum was reapproximated with #3-0 Vicryl. The rectus muscles were reapproximated with #3-0 Vicryl. The fascia was then closed with #0 Vicryl in a running nonlocking fashion. The subcutaneous tissue was then irrigated and suctioned. Subcutaneous tissue was reapproximated with #3-0 Vicryl. Several subdermal stitches were placed with #3-0 Vicryl. The skin was closed with #4-0 Monocryl in a subcuticular fashion. The incision was then cleaned and dry. Mastisol was applied above and below the incision. Steri-Strips were applied over the incision. The incision was dressed. The patient was then taken to recovery in stable condition. Counts were correct. MTDD
[2017-01-31] MEDS: PRENATAL VITAMIN TAB PO SCH (08:59)
[2017-01-31 10:00] VITALS: BP 99/58
[2017-01-31] MEDS: BUDESONIDE 180MCG INHALER (PULMICORT FLEXHALER) INH SCH (11:41)
[2017-01-31 14:00] VITALS: BP 101/56
[2017-01-31 18:00] VITALS: BP 108/57
[2017-01-31] MEDS: MOM 30ML SUSPENSION UDC PO PRN (19:17)
[2017-01-31 22:07] VITALS: BP 134/76
[2017-01-31] MEDS: SIMETHICONE 80 MG CHEW TAB PO PRN (22:52)
[2017-02-01] MEDS: PERCOCET 5MG/325MG TAB PO PRN ×2 (04:46→09:12)
[2017-02-01] MEDS: IBUPROFEN 800 MG TAB PO SCH ×3 (04:46→20:27)
[2017-02-01 05:40] VITALS: BP 118/60
[2017-02-01] MEDS: BUDESONIDE 180MCG INHALER (PULMICORT FLEXHALER) INH SCH (07:54)
[2017-02-01] MEDS: PRENATAL VITAMIN TAB PO SCH (09:11)
[2017-02-01 18:21] VITALS: BP 116/68
[2017-02-02] MEDS: PERCOCET 5MG/325MG TAB PO PRN (04:57)
[2017-02-02] MEDS: IBUPROFEN 800 MG TAB PO SCH (04:57)
[2017-02-02] MEDS: SIMETHICONE 80 MG CHEW TAB PO PRN (05:20)
[2017-02-02] MEDS: MOM 30ML SUSPENSION UDC PO PRN (05:20)
[2017-02-02 06:08] VITALS: BP 108/63
--- NOTE | 2017-02-02 06:58 | DSES ---
DATE OF ADMISSION: 01/30/2017 DATE OF DISCHARGE: DISCHARGE DIAGNOSIS: Primary section postoperative day three stable condition. SURGEON: Dr. Janae Hays HISTORY: Jeni is a 41-year-old, 5, para 4-0-1-4 now. She underwent primary section on 01/30/2017 due to arrest of dilation. She also had a bilateral tubal ligation. She delivered a male weighing 2085 grams, 6 pounds 6 ounces, and 9 and 10. Her postoperative course has been essentially uncomplicated. She has been slow to get out of bed. She has been encouraged to shower, walk the perez, and care for her and has done so in the last 24 hours without any assistance. Her pain has been very well controlled with by mouth Percocet and ibuprofen. OBJECTIVE: Temperature 98.1, pulse 87, respirations 18, blood pressure 108/63. She is alert and oriented times three. She does grimace with movement. Breasts are soft and nontender. Abdomen: Fundus firm at umbilicus (U). Incision is well approximated. Steri-Strips were removed approximately 12 hours ago. She currently has no drainage, no redness, no warmth, no edema. The incision is healing well. Her perineum is intact with lochia rubrous scant. Bilateral lower extremities with mild edema. PLAN: Discharge the patient to home today. I did review the discharge instructions with her, including a 2 week followup appointment for incision check and a 6 week visit, breast care, incision care, renetta care, activity and lifting restrictions, access to care, other danger signs which to report. Prescriptions have been E-prescribed by Dr. Hays for by mouth Percocet and ibuprofen. All of the patient's questions have been answered and she is to be discharged today with her .
[2017-02-02] MEDS: PRENATAL VITAMIN TAB PO SCH (09:00)
[2017-02-02] MEDS: BUDESONIDE 180MCG INHALER (PULMICORT FLEXHALER) INH SCH (09:45)
== END 2017-02-02 12:30 | disposition home or self-care (01) | DRG 540 ==
LOC: M LDO 01:54 → M LDI 02:29 → M OBS 20:20
PROVIDERS: ADMIT Obstetrics & Gynecology; ATTEND Obstetrics & Gynecology
PROC: 0UB70ZZ Excision of Bilateral Fallopian Tubes, Open Approach (ICD-10-PCS; 2017-01-30)
PROC: 10D00Z1 Extraction of Products of Conception, Low, Open Approach (ICD-10-PCS; principal; 2017-01-30 19:31)
DX: O62.0 Primary inadequate contractions (principal); O09.523 Supervision of elderly multigravida, third trimester; Z37.0 Single live birth; Z3A.39 39 weeks gestation of pregnancy; Z30.2 Encounter for sterilization

== ENCOUNTER → 2017-03-16 | Outpatient (REF) | payer OTHER ==
[~2017-03-16] MED LIST changes: +IBUP800T23 PO; +PERCOCET PO
[2017-03-16 16:26] LABS: BASO # 0.1 K/mm3 (0.0-0.2); BASO % 0.7 % (0.0-1.0); EOS # 0.7 K/mm3 (0.0-0.50); EOS % 8.5 % (0.0-3.0); LARGE UNSTAINED CELL # 0.1 K/mm3 (0.0-0.4); LARGE UNSTAINED CELL % 1.2 % (0.0-4.0); LYMPH % 23.8 % (24.0-44.0); MEAN CORPUSCULAR HEMOGLOBIN 29.5 pg (27.0-33.0); MEAN CORPUSCULAR HGB CONC 32.5 g/dl (32.0-36.5); MEAN CORPUSCULAR VOLUME 90.8 fl (80.0-96.0); MONO # 0.3 K/mm3 (0.0-0.8); NEUTROPHILS # 4.9 K/mm3 (1.8-7.7); NEUTROPHILS % 61.8 % (36.0-66.0); PLATELET COUNT, AUTOMATED 308 k/mm3 (150-450); RED CELL DISTRIBUTION WIDTH 12.9 % (11.5-14.5); WHITE BLOOD COUNT 7.9 K/mm3 (4.0-10.0)
[2017-03-16 16:49] LABS: ALBUMIN 3.5 GM/DL (3.2-5.2); ALBUMIN/GLOBULIN RATIO 0.88 (1.00-1.93); ALKALINE PHOSPHATASE 123 U/L (45-117); ALT/SGPT 22 U/L (12-78); ANION GAP 8 MEQ/L (8-16); AST/SGOT 11 U/L (15-37); BILIRUBIN,TOTAL 0.2 MG/DL (0.2-1.0); BLOOD UREA NITROGEN 15 MG/DL (7-18); CALCIUM LEVEL 8.7 MG/DL (8.5-10.1); CARBON DIOXIDE LEVEL 28 MEQ/L (21-32); CHLORIDE LEVEL 105 MEQ/L (98-107); CREATININE FOR GFR 0.59 MG/DL (0.55-1.02); GLOMERULAR FILTRATION RATE > 60.0 (>58); GLUCOSE, FASTING 81 MG/DL (70-105); POTASSIUM SERUM 4.2 MEQ/L (3.5-5.1); SODIUM LEVEL 141 MEQ/L (136-145); TOTAL PROTEIN 7.5 GM/DL (6.4-8.2)
[2017-03-16 16:58] LABS: ERYTHROCYTE SEDIMENTATION RATE 63 mm/hr (0-20)
[2017-03-19 00:07] LABS: Lyme Disease IgG/IgM Antibodie <0.91 ISR (0.00-0.90); Lyme Disease IgM Ab Quantitati <0.80 index (0.00-0.79)
== END ==
LOC: M LABDRAW1 15:34
PROVIDERS: ATTEND Internal Medicine Rheumatology
DX: M05.79 Rheumatoid arthritis with rheumatoid factor of multiple sites without organ or systems involvement (principal); R53.83 Other fatigue; E55.9 Vitamin D deficiency, unspecified

== ENCOUNTER → 2017-03-18 | Outpatient (REF) | payer OTHER ==
[2017-03-18 18:41] LABS: BF DIFF IF INDICATED? YES (NO); RBC ADVIA BF 0.02; RBC CALC. BF 20000 (< 10mm3 cells/uL); SYNOVIAL FLUID COLOR PALE YELLOW (YELLOW); WBC ADVIA BF 23.2; WBC CALC. BF 23200 cells/uL (0-20)
[2017-03-18 18:59] LABS: CC BF DIFF EXAM CYTOCENTRIFUGE; CRYSTALS, BODY FLUID NONE SEEN (NONE SEEN)
== END ==
LOC: M LAB REF 17:14
PROVIDERS: ATTEND Internal Medicine Rheumatology
DX: M05.79 Rheumatoid arthritis with rheumatoid factor of multiple sites without organ or systems involvement (principal)

== ENCOUNTER → 2017-03-24 | Outpatient (REF) | payer OTHER ==
[2017-03-24 18:55] LABS: COMPLEMENT C4 22.1 MG/DL (10-40)
== END ==
LOC: M LABDRAW1 17:08
PROVIDERS: ATTEND Internal Medicine Rheumatology
DX: M05.79 Rheumatoid arthritis with rheumatoid factor of multiple sites without organ or systems involvement (principal); Z79.899 Other long term (current) drug therapy

== ENCOUNTER → 2017-10-05 | Outpatient (REF) | payer OTHER ==
[~2017-10-05] MED LIST changes: +IBUP1TAB7 PO; -IBUP800T23 PO
[2017-10-05 18:18] LABS: BASO % 0.5 % (0.0-1.0); EOS # 0.4 10^3/uL (0.0-0.50); EOS % 4.9 % (0.0-3.0); IMMATURE GRANULOCYTE % 0.4 % (0-0); LYMPH # 2.1 10^3/uL (1.5-4.5); LYMPH % 26.4 % (24.0-44.0); MEAN CORPUSCULAR HEMOGLOBIN 27.6 pg (27.0-33.0); MEAN CORPUSCULAR VOLUME 86.3 fl (80.0-96.0); MONO # 0.4 10^3/uL (0.0-0.8); MONO % 5.5 % (0.0-5.0); NEUTROPHILS % 62.3 % (36.0-66.0); PLATELET COUNT, AUTOMATED 297 10^3/uL (150-450); RED CELL DISTRIBUTION WIDTH 13.5 % (11.5-14.5)
[2017-10-05 18:55] LABS: ALBUMIN 3.6 GM/DL (3.2-5.2); ALBUMIN/GLOBULIN RATIO 1.09 (1.00-1.93); BILIRUBIN,TOTAL 0.2 MG/DL (0.2-1.0); CREATININE FOR GFR 1.08 MG/DL (0.55-1.02); GLOMERULAR FILTRATION RATE 59.2 (>58); POTASSIUM SERUM 3.9 MEQ/L (3.5-5.1); TOTAL PROTEIN 6.9 GM/DL (6.4-8.2)
[2017-10-05 19:01] LABS: ERYTHROCYTE SEDIMENTATION RATE 34 mm/hr (0-20)
== END ==
LOC: M LABDRAW1 17:56
PROVIDERS: ATTEND Internal Medicine Rheumatology
DX: M05.79 Rheumatoid arthritis with rheumatoid factor of multiple sites without organ or systems involvement (principal); Z79.899 Other long term (current) drug therapy; E55.9 Vitamin D deficiency, unspecified

== ENCOUNTER → 2018-02-09 | Outpatient (CLI) | payer OTHER | LOC: M RAD 11:23 | DX: G43.909 Migraine, unspecified, not intractable, without status migrainosus (principal) | CPT/HCPCS: 70551 ==

== ENCOUNTER → 2018-03-30 | Outpatient (REF) | payer OTHER ==
[2018-03-30 19:29] LABS: BASO # 0.1 10^3/uL (0.0-0.2); BASO % 0.7 % (0.0-1.0); EOS # 0.1 10^3/uL (0.0-0.50); EOS % 1.4 % (0.0-3.0); HEMATOCRIT 37.2 % (36.0-47.0); HEMOGLOBIN 11.6 g/dl (12.0-15.5); IMMATURE GRANULOCYTE % 0.3 % (0-3.0); LYMPH # 1.3 10^3/uL (1.5-4.5); LYMPH % 14.1 % (24.0-44.0); MEAN CORPUSCULAR HEMOGLOBIN 27.8 pg (27.0-33.0); MEAN CORPUSCULAR HGB CONC 31.2 g/dl (32.0-36.5); MEAN CORPUSCULAR VOLUME 89.2 fl (80.0-96.0); MONO # 0.5 10^3/uL (0.0-0.8); NEUTROPHILS # 7.2 10^3/uL (1.8-7.7); NEUTROPHILS % 78.5 % (36.0-66.0); PLATELET COUNT, AUTOMATED 258 10^3/uL (150-450); RED BLOOD COUNT 4.17 10^6/uL (4.00-5.40); RED CELL DISTRIBUTION WIDTH 13.9 % (11.5-14.5); WHITE BLOOD COUNT 9.1 10^3/uL (4.0-10.0)
== END ==
LOC: M LABDRWAD 10:23
DX: Z51.81 Encounter for therapeutic drug level monitoring (principal); Z79.899 Other long term (current) drug therapy

== ENCOUNTER 2018-04-08 11:45 | Day surgery (SDC) | payer OTHER ==
[2018-04-08] MEDS: NS 1,000 ML IV (12:30)
== END 2018-04-08 14:43 | disposition home or self-care (01) ==
LOC: M OPP 11:45
DX: K44.9 Diaphragmatic hernia without obstruction or gangrene (principal); K29.70 Gastritis, unspecified, without bleeding; R13.10 Dysphagia, unspecified; M06.9 Rheumatoid arthritis, unspecified; J45.909 Unspecified asthma, uncomplicated; F41.9 Anxiety disorder, unspecified; D64.9 Anemia, unspecified; Z79.891 Long term (current) use of opiate analgesic; Z79.899 Other long term (current) drug therapy; Z91.018 Allergy to other foods
CPT/HCPCS: 43239

== ENCOUNTER → 2018-04-28 | Outpatient (REF) | payer OTHER ==
[2018-04-28 13:16] LABS: BASO # 0.1 10^3/uL (0.0-0.2); EOS # 0.5 10^3/uL (0.0-0.50); EOS % 7.8 % (0.0-3.0); HEMATOCRIT 35.2 % (36.0-47.0); HEMOGLOBIN 11.3 g/dl (12.0-15.5); IMMATURE GRANULOCYTE % 0.1 % (0-3.0); LYMPH # 2.4 10^3/uL (1.5-4.5); LYMPH % 34.7 % (24.0-44.0); MEAN CORPUSCULAR HGB CONC 32.1 g/dl (32.0-36.5); MEAN CORPUSCULAR VOLUME 87.3 fl (80.0-96.0); MONO # 0.5 10^3/uL (0.0-0.8); MONO % 7.2 % (0.0-5.0); NEUTROPHILS # 3.3 10^3/uL (1.8-7.7); NEUTROPHILS % 49.2 % (36.0-66.0); PLATELET COUNT, AUTOMATED 270 10^3/uL (150-450); RED BLOOD COUNT 4.03 10^6/uL (4.00-5.40); RED CELL DISTRIBUTION WIDTH 13.2 % (11.5-14.5); WHITE BLOOD COUNT 6.8 10^3/uL (4.0-10.0)
[2018-05-01 08:57] LABS: E001-IgE Cat Epith/Dander < 0.10 kU/L (Class 0); E005-IgE Dog Dander < 0.10 kU/L (Class 0); G002-IgE Bermuda Grass < 0.10 kU/L (Class 0); G008-IgE Kentucky Bluegrass < 0.10 kU/L (Class 0); M001-IgE Penicillium chrysogen < 0.10 kU/L (Class 0); M002 IgE Cladosporium herbaru < 0.10 kU/L (Class 0); M003 IgE Aspergillus fumigatu < 0.10 kU/L (Class 0); M006-IgE Alternaria alternata < 0.10 kU/L (Class 0); T001-IgE Maple/Box Elder < 0.10 kU/L (Class 0); T003-IgE Common Silver Birch < 0.10 kU/L (Class 0); T006-IgE Cedar, Mountain < 0.10 kU/L (Class 0); T007-IgE Oak, White < 0.10 kU/L (Class 0); T008-IgE Elm, American < 0.10 kU/L (Class 0); T015-IgE Ash, White < 0.10 kU/L (Class 0); T041-IgE Hickory, White < 0.10 kU/L (Class 0); T070-IgE White Mulberry < 0.10 kU/L (Class 0); W001-IgE Ragweed, Short < 0.10 kU/L (Class 0); W009-IgE Plantain, English < 0.10 kU/L (Class 0); W014-IgE Pigweed, Rough < 0.10 kU/L (Class 0); W018-IgE Sheep Sorrel < 0.10 kU/L (Class 0)
== END ==
LOC: M LAB REF 12:54
DX: J45.40 Moderate persistent asthma, uncomplicated (principal)

== ENCOUNTER → 2018-07-15 | Outpatient (REF) | payer OTHER ==
[2018-07-15 17:11] LABS: ALBUMIN 3.9 GM/DL (3.2-5.2); ALBUMIN/GLOBULIN RATIO 1.15 (1.00-1.93); ALKALINE PHOSPHATASE 93 U/L (45-117); ALT/SGPT 23 U/L (12-78); ANION GAP 6 MEQ/L (8-16); AST/SGOT 12 U/L (7-37); BASO % 0.4 % (0.0-1.0); BILIRUBIN,TOTAL 0.3 MG/DL (0.2-1.0); BLOOD UREA NITROGEN 12 MG/DL (7-18); CALCIUM LEVEL 8.7 MG/DL (8.5-10.1); CARBON DIOXIDE LEVEL 27 MEQ/L (21-32); CHLORIDE LEVEL 107 MEQ/L (98-107); EOS # 0.3 10^3/uL (0.0-0.50); EOS % 2.9 % (0.0-3.0); GLOMERULAR FILTRATION RATE > 60.0 (>58); GLUCOSE, FASTING 88 MG/DL (70-100); HEMATOCRIT 36.4 % (36.0-47.0); HEMOGLOBIN 11.6 g/dl (12.0-15.5); IMMATURE GRANULOCYTE % 0.5 % (0-3.0); LYMPH # 1.4 10^3/uL (1.5-4.5); LYMPH % 14.5 % (24.0-44.0); MEAN CORPUSCULAR HEMOGLOBIN 28.2 pg (27.0-33.0); MEAN CORPUSCULAR HGB CONC 31.9 g/dl (32.0-36.5); MEAN CORPUSCULAR VOLUME 88.3 fl (80.0-96.0); MONO # 0.4 10^3/uL (0.0-0.8); MONO % 4.5 % (0.0-5.0); NEUTROPHILS # 7.5 10^3/uL (1.8-7.7); NEUTROPHILS % 77.2 % (36.0-66.0); PLATELET COUNT, AUTOMATED 289 10^3/uL (150-450); POTASSIUM SERUM 4.2 MEQ/L (3.5-5.1); RED BLOOD COUNT 4.12 10^6/uL (4.00-5.40); RED CELL DISTRIBUTION WIDTH 13.5 % (11.5-14.5); SODIUM LEVEL 140 MEQ/L (136-145); TOTAL PROTEIN 7.3 GM/DL (6.4-8.2); WHITE BLOOD COUNT 9.7 10^3/uL (4.0-10.0)
[2018-07-15 17:22] LABS: TOTAL 25(OH) VITAMIN D 34.1 NG/ML (30.0-100.0)
[2018-07-15 17:57] LABS: ERYTHROCYTE SEDIMENTATION RATE 22 mm/hr (0-20)
== END ==
LOC: M SFHCLERA 14:12
DX: M06.9 Rheumatoid arthritis, unspecified (principal)

== ENCOUNTER → 2018-08-31 | Outpatient (REF) | payer OTHER ==
[2018-08-31 17:03] LABS: BASO # 0.1 10^3/uL (0.0-0.2); EOS # 0.5 10^3/uL (0.0-0.50); EOS % 6.5 % (0.0-3.0); HEMATOCRIT 35.8 % (36.0-47.0); HEMOGLOBIN 11.4 g/dl (12.0-15.5); IMMATURE GRANULOCYTE % 0.4 % (0-3.0); LYMPH # 1.7 10^3/uL (1.5-4.5); LYMPH % 22.8 % (24.0-44.0); MEAN CORPUSCULAR HEMOGLOBIN 28.2 pg (27.0-33.0); MEAN CORPUSCULAR HGB CONC 31.8 g/dl (32.0-36.5); MEAN CORPUSCULAR VOLUME 88.6 fl (80.0-96.0); MONO # 0.6 10^3/uL (0.0-0.8); MONO % 7.8 % (0.0-5.0); NEUTROPHILS # 4.5 10^3/uL (1.8-7.7); NEUTROPHILS % 61.5 % (36.0-66.0); PLATELET COUNT, AUTOMATED 289 10^3/uL (150-450); RED BLOOD COUNT 4.04 10^6/uL (4.00-5.40); RED CELL DISTRIBUTION WIDTH 14.4 % (11.5-14.5); WHITE BLOOD COUNT 7.3 10^3/uL (4.0-10.0)
[2018-08-31 17:13] LABS: ALBUMIN 3.6 GM/DL (3.2-5.2); ALBUMIN/GLOBULIN RATIO 1.09 (1.00-1.93); ALKALINE PHOSPHATASE 119 U/L (45-117); ALT/SGPT 43 U/L (12-78); ANION GAP 5 MEQ/L (8-16); AST/SGOT 23 U/L (7-37); BILIRUBIN,TOTAL 0.3 MG/DL (0.2-1.0); BLOOD UREA NITROGEN 14 MG/DL (7-18); C REACTIVE PROTEIN QUANTITATIV 0.93 MG/DL (0.00-0.30); CALCIUM LEVEL 8.7 MG/DL (8.5-10.1); CARBON DIOXIDE LEVEL 29 MEQ/L (21-32); CHLORIDE LEVEL 106 MEQ/L (98-107); CREATININE FOR GFR 0.65 MG/DL (0.55-1.30); GLOMERULAR FILTRATION RATE > 60.0 (>58); GLUCOSE, FASTING 80 MG/DL (70-100); POTASSIUM SERUM 4.1 MEQ/L (3.5-5.1); SODIUM LEVEL 140 MEQ/L (136-145); TOTAL PROTEIN 6.9 GM/DL (6.4-8.2)
[2018-08-31 18:00] LABS: ERYTHROCYTE SEDIMENTATION RATE 25 mm/hr (0-20)
== END ==
LOC: M SFHCLERA 11:14
DX: M06.9 Rheumatoid arthritis, unspecified (principal)

== ENCOUNTER → 2018-11-22 | Outpatient (REF) | payer OTHER ==
[~2018-11-22] MED LIST changes: +BUDE180INH; +CALC500T36 PO; +FISH100049 PO; +HUMI40KI2; +LEFL1TAB4; +OMEP40CA2; +PRED5TA; +VENTAER; +ZOFR4TAB14 PO; -ZOFR4TAB3 PO
[2018-11-22 18:43] LABS: BASO % 0.6 % (0.0-1.0); EOS # 0.5 10^3/uL (0.0-0.50); EOS % 6.8 % (0.0-3.0); HEMATOCRIT 34.9 % (36.0-47.0); HEMOGLOBIN 11.2 g/dl (12.0-15.5); LYMPH # 1.8 10^3/uL (1.5-4.5); LYMPH % 25.9 % (24.0-44.0); MEAN CORPUSCULAR HEMOGLOBIN 28.6 pg (27.0-33.0); MEAN CORPUSCULAR HGB CONC 32.1 g/dl (32.0-36.5); MONO # 0.6 10^3/uL (0.0-0.8); MONO % 8.4 % (0.0-5.0); NEUTROPHILS # 4.1 10^3/uL (1.8-7.7); NEUTROPHILS % 58.2 % (36.0-66.0); PLATELET COUNT, AUTOMATED 255 10^3/uL (150-450); RED BLOOD COUNT 3.92 10^6/uL (4.00-5.40)
[2018-11-22 19:03] LABS: ALBUMIN 3.6 GM/DL (3.2-5.2); ALT/SGPT 29 U/L (12-78); BILIRUBIN,TOTAL 0.1 MG/DL (0.2-1.0); BLOOD UREA NITROGEN 15 MG/DL (7-18); C REACTIVE PROTEIN QUANTITATIV 0.61 MG/DL (0.00-0.30); CALCIUM LEVEL 8.5 MG/DL (8.5-10.1); CARBON DIOXIDE LEVEL 27 MEQ/L (21-32); CHLORIDE LEVEL 105 MEQ/L (98-107); CREATININE FOR GFR 0.82 MG/DL (0.55-1.30); GLOMERULAR FILTRATION RATE > 60.0 (>58); GLUCOSE, FASTING 93 MG/DL (70-100); POTASSIUM SERUM 4.1 MEQ/L (3.5-5.1); SODIUM LEVEL 140 MEQ/L (136-145); TOTAL PROTEIN 6.6 GM/DL (6.4-8.2)
[2018-11-22 19:15] LABS: ERYTHROCYTE SEDIMENTATION RATE 21 mm/hr (0-20)
== END ==
LOC: M SFHCPLAZ 15:23
PROVIDERS: ATTEND Internal Medicine Rheumatology
DX: M05.79 Rheumatoid arthritis with rheumatoid factor of multiple sites without organ or systems involvement (principal)

== ENCOUNTER → 2019-01-04 | Outpatient (REF) | payer OTHER ==
[2019-01-04 15:47] LABS: BASO # 0.1 10^3/uL (0.0-0.2); BASO % 0.7 % (0.0-1.0); EOS # 0.8 10^3/uL (0.0-0.50); EOS % 9.3 % (0.0-3.0); HEMATOCRIT 34.3 % (36.0-47.0); HEMOGLOBIN 10.9 g/dl (12.0-15.5); LYMPH # 2.4 10^3/uL (1.5-4.5); LYMPH % 28.6 % (24.0-44.0); MEAN CORPUSCULAR HEMOGLOBIN 28.5 pg (27.0-33.0); MEAN CORPUSCULAR HGB CONC 31.8 g/dl (32.0-36.5); MEAN CORPUSCULAR VOLUME 89.8 fl (80.0-96.0); MONO # 0.5 10^3/uL (0.0-0.8); MONO % 5.4 % (0.0-5.0); NEUTROPHILS # 4.6 10^3/uL (1.8-7.7); NEUTROPHILS % 55.6 % (36.0-66.0); PLATELET COUNT, AUTOMATED 281 10^3/uL (150-450); RED BLOOD COUNT 3.82 10^6/uL (4.00-5.40); WHITE BLOOD COUNT 8.3 10^3/uL (4.0-10.0)
[2019-01-04 15:53] LABS: ALBUMIN 3.7 GM/DL (3.2-5.2); ALT/SGPT 30 U/L (12-78); BILIRUBIN,TOTAL 0.3 MG/DL (0.2-1.0); BLOOD UREA NITROGEN 14 MG/DL (7-18); C REACTIVE PROTEIN QUANTITATIV 0.57 MG/DL (0.00-0.30); CALCIUM LEVEL 8.2 MG/DL (8.5-10.1); CARBON DIOXIDE LEVEL 29 MEQ/L (21-32); CHLORIDE LEVEL 107 MEQ/L (98-107); CREATININE FOR GFR 0.62 MG/DL (0.55-1.30); GLOMERULAR FILTRATION RATE > 60.0 (>58); GLUCOSE, FASTING 95 MG/DL (70-100); SODIUM LEVEL 141 MEQ/L (136-145); TOTAL PROTEIN 6.7 GM/DL (6.4-8.2)
[2019-01-04 19:16] LABS: ERYTHROCYTE SEDIMENTATION RATE 25 mm/hr (0-20)
== END ==
LOC: M SFHCPLAZ 13:51
PROVIDERS: ATTEND Internal Medicine Rheumatology
DX: M05.79 Rheumatoid arthritis with rheumatoid factor of multiple sites without organ or systems involvement (principal)

== ENCOUNTER → 2019-02-13 | Outpatient (REF) | payer OTHER ==
[~2019-02-13] MED LIST changes: +CALC12504 PO; -CALC500T36 PO
== END ==
LOC: M LAB REF 17:24
PROVIDERS: ATTEND Advanced Practice Midwife
DX: R30.0 Dysuria (principal)

== ENCOUNTER → 2019-04-18 | Outpatient (CLI) | payer OTHER ==
[2019-04-18 18:16] LABS: ALBUMIN 3.7 GM/DL (3.2-5.2); ALT/SGPT 21 U/L (12-78); BILIRUBIN,TOTAL 0.2 MG/DL (0.2-1.0); BLOOD UREA NITROGEN 15 MG/DL (7-18); CALCIUM LEVEL 8.7 MG/DL (8.5-10.1); CARBON DIOXIDE LEVEL 28 MEQ/L (21-32); CHLORIDE LEVEL 107 MEQ/L (98-107); CREATININE FOR GFR 0.73 MG/DL (0.55-1.30); GLOMERULAR FILTRATION RATE > 60.0 (>58); GLUCOSE, FASTING 106 MG/DL (70-100); POTASSIUM SERUM 4.5 MEQ/L (3.5-5.1); SODIUM LEVEL 140 MEQ/L (136-145); TOTAL PROTEIN 7.1 GM/DL (6.4-8.2)
[2019-04-18 22:30] LABS: BASO # 0.1 10^3/uL (0.0-0.2); BASO % 0.8 % (0.0-1.0); EOS # 0.4 10^3/uL (0.0-0.50); EOS % 5.3 % (0.0-3.0); HEMATOCRIT 33.6 % (36.0-47.0); HEMOGLOBIN 10.9 g/dl (12.0-15.5); LYMPH # 1.4 10^3/uL (1.5-4.5); MEAN CORPUSCULAR HEMOGLOBIN 29.5 pg (27.0-33.0); MEAN CORPUSCULAR HGB CONC 32.4 g/dl (32.0-36.5); MEAN CORPUSCULAR VOLUME 91.1 fl (80.0-96.0); MONO # 0.5 10^3/uL (0.0-0.8); MONO % 6.1 % (0.0-5.0); NEUTROPHILS # 5.2 10^3/uL (1.8-7.7); NEUTROPHILS % 68.5 % (36.0-66.0); PLATELET COUNT, AUTOMATED 254 10^3/uL (150-450); RED BLOOD COUNT 3.69 10^6/uL (4.00-5.40); WHITE BLOOD COUNT 7.6 10^3/uL (4.0-10.0)
[2019-04-18 22:49] LABS: ERYTHROCYTE SEDIMENTATION RATE 21 mm/hr (0-20)
== END ==
LOC: M LAB 17:06
PROVIDERS: ATTEND Internal Medicine Rheumatology
DX: M05.79 Rheumatoid arthritis with rheumatoid factor of multiple sites without organ or systems involvement (principal)

== ENCOUNTER → 2019-08-02 | Outpatient (CLI) | payer OTHER ==
[~2019-08-02] MED LIST changes: -CALC12504 PO; +CALC500T61 PO; -OMEP40CA2; +OMEP40CA97
[2019-08-02 10:47] LABS: BASO % 0.9 % (0.0-1.0); EOS # 0.3 10^3/uL (0.0-0.5); HEMATOCRIT 35.2 % (36.0-47.0); HEMOGLOBIN 11.2 g/dl (12.0-15.5); LYMPH # 1.8 10^3/uL (1.5-5.0); LYMPH % 37.5 % (24.0-44.0); MEAN CORPUSCULAR HEMOGLOBIN 28.8 pg (27.0-33.0); MEAN CORPUSCULAR HGB CONC 31.8 g/dl (32.0-36.5); MEAN CORPUSCULAR VOLUME 90.5 fl (80.0-96.0); MONO # 0.3 10^3/uL (0.0-0.8); MONO % 5.3 % (0.0-5.0); NEUTROPHILS # 2.3 10^3/uL (1.5-8.5); NEUTROPHILS % 49.1 % (36.0-66.0); PLATELET COUNT, AUTOMATED 266 10^3/uL (150-450); RED BLOOD COUNT 3.89 10^6/uL (4.00-5.40); WHITE BLOOD COUNT 4.7 10^3/uL (4.0-10.0)
[2019-08-02 11:09] LABS: ERYTHROCYTE SEDIMENTATION RATE 25 mm/hr (0-20)
[2019-08-02 11:16] LABS: ALBUMIN 3.8 GM/DL (3.2-5.2); ALT/SGPT 24 U/L (12-78); BILIRUBIN,TOTAL 0.3 MG/DL (0.2-1.0); BLOOD UREA NITROGEN 14 MG/DL (7-18); C REACTIVE PROTEIN QUANTITATIV < 0.30 MG/DL (0.00-0.30); CARBON DIOXIDE LEVEL 27 MEQ/L (21-32); CHLORIDE LEVEL 108 MEQ/L (98-107); CREATININE FOR GFR 0.81 MG/DL (0.55-1.30); GLOMERULAR FILTRATION RATE > 60.0 (>58); GLUCOSE, FASTING 95 MG/DL (70-100); POTASSIUM SERUM 3.9 MEQ/L (3.5-5.1); SODIUM LEVEL 142 MEQ/L (136-145); TOTAL PROTEIN 7.5 GM/DL (6.4-8.2)
== END ==
LOC: M LAB 09:42
PROVIDERS: ATTEND Internal Medicine Rheumatology
DX: M05.79 Rheumatoid arthritis with rheumatoid factor of multiple sites without organ or systems involvement (principal)